=== PATIENT | female | born 1990 | race Caucasian/White ===

== ENCOUNTER 2017-12-04 21:46 | Emergency (ER) | payer BC ==
[~2017-12-04] VITALS: Ht 170.2 cm; Wt 81.2 kg
[~2017-12-04 21:46] MED LIST: APIX5TAB3 PO
[2017-12-04] MEDS ORDERED: naproxen 500mg tablet PO ONE (22:25)
[2017-12-04] MEDS ORDERED: NAPR-56 PO (22:40)
[2017-12-04 22:50] VITALS: BP 146/102
== END 2017-12-04 22:51 | disposition home or self-care (01) ==
LOC: ER 21:47
DX: S93.401A Sprain of unspecified ligament of right ankle, initial encounter (principal); Z88.6 Allergy status to analgesic agent; Z91.013 Allergy to seafood; X58.XXXA Exposure to other specified factors, initial encounter; Y93.67 Activity, basketball; Y92.89 Other specified places as the place of occurrence of the external cause; Y99.8 Other external cause status
CPT/HCPCS: 29515; 73630; 99284; A6449

== ENCOUNTER 2017-12-17 13:29 | Outpatient (CLI) | payer BC ==
[~2017-12-17 13:29] MED LIST changes: +NAPR-56 PO
[2017-12-17 13:39] VITALS: BP 138/92
== END 2017-12-17 14:15 | disposition home or self-care (01) ==
LOC: ORTHO 13:29
PROVIDERS: ATTEND Nurse Practitioner Family
DX: S93.491A Sprain of other ligament of right ankle, initial encounter (principal); Z86.718 Personal history of other venous thrombosis and embolism; X58.XXXA Exposure to other specified factors, initial encounter; Y93.67 Activity, basketball; Y92.89 Other specified places as the place of occurrence of the external cause; Y99.8 Other external cause status
CPT/HCPCS: 29540; 99213

== ENCOUNTER 2018-01-06 14:38 | Outpatient (CLI) | payer BC ==
[~2018-01-06 14:38] MED LIST changes: -NAPR-56 PO
[2018-01-06 14:58] VITALS: BP 135/83
== END 2018-01-06 15:05 | disposition home or self-care (01) ==
LOC: ORTHO 14:38
PROVIDERS: ATTEND Nurse Practitioner Family
DX: S93.491D Sprain of other ligament of right ankle, subsequent encounter (principal); Z86.718 Personal history of other venous thrombosis and embolism; Z88.8 Allergy status to other drugs, medicaments and biological substances; Z91.013 Allergy to seafood; X58.XXXD Exposure to other specified factors, subsequent encounter; Y93.67 Activity, basketball
CPT/HCPCS: 99212

== ENCOUNTER 2018-01-27 15:28 | Outpatient (CLI) | payer BC ==
[2018-01-27 15:22] VITALS: BP 138/76
== END 2018-01-27 16:00 | disposition home or self-care (01) ==
LOC: ORTHO 15:28
PROVIDERS: ATTEND Nurse Practitioner Family
DX: S93.491D Sprain of other ligament of right ankle, subsequent encounter (principal); Z88.6 Allergy status to analgesic agent; Z88.8 Allergy status to other drugs, medicaments and biological substances; Z86.718 Personal history of other venous thrombosis and embolism; X58.XXXA Exposure to other specified factors, initial encounter; Y93.67 Activity, basketball; Y92.89 Other specified places as the place of occurrence of the external cause; Y99.8 Other external cause status
CPT/HCPCS: 99213